=== PATIENT | female | born 1930 | race Caucasian/White ===

== ENCOUNTER 2019-01-25 13:58 | Emergency (ER) | payer MEDICARE ==
[~2019-01-25] VITALS: Ht 165.1 cm; Wt 48.0 kg
[2019-01-25 14:52] LABS: BASOPHILS # (AUTO) 0.02 x10^3/uL (0-0.1); BASOPHILS % (AUTO) 0 % (0-1); EOSINOPHILS # (AUTO) 0.08 x10^3/uL (0-0.4); EOSINOPHILS % (AUTO) 2 % (1-7); LYMPHOCYTES % (AUTO) 31 % (22-44); MD NO; MEAN CORPUSCULAR HEMOGLOBIN 33.3 pg (27.0-34.8); MEAN CORPUSCULAR VOLUME 100.7 fL (80-100); MEAN PLATELET VOLUME 7.7 fL (7.4-10.4); MONOCYTES # (AUTO) 0.55 x10^3/uL (0.2-0.8); MONOCYTES % (AUTO) 10 % (2-9); NEUTROPHILS % (AUTO) 57 % (42-75); PLATELET COUNT 247 x10^3/uL (130-400); RED BLOOD COUNT 4.32 x10^6/uL (3.82-5.3); RED CELL DISTRIBUTION WIDTH 13.9 % (9.6-15.2)
[2019-01-25 14:59] LABS: ALBUMIN 3.3 g/dL (3.4-5.0); ANION GAP 4 mmol/L (5-15); CALCIUM 7.9 mg/dL (8.5-10.1); CHLORIDE 113 mmol/L (98-107)
--- NOTE | 2019-01-25 15:02 | NUR ---
KATIA RN: TAMI RG UA COLLECTED AND SENT TO LAB
[2019-01-25 15:04] LABS: T4 (THYROXINE) 11.3 mcg/dL (4.8-13.9); TROPONIN I < 0.015 ng/mL (0.000-0.045)
[2019-01-25 15:10] LABS: THYROID STIMULATING HORMONE 0.487 mIU/L (0.358-3.740)
--- NOTE | 2019-01-25 15:10 | NUR ---
TALKED WITH DAUGHTER ON THE PHONE AND CONFIRMED PT BASELINE
[2019-01-25 15:17] LABS: MICROSCOPIC NOT IND
[2019-01-25 15:25] LABS: CULTURE INDICATED? NO
--- NOTE | 2019-01-25 16:51 | NUR ---
[facility] TO TRANSPORT PT BACK TO [facility] ([facility]) @ 1800 VIA PER PRIMARY RN.
--- NOTE | 2019-01-25 17:27 | NUR ---
PT GIVEN A MEAL WAITING ON [employer] [facility]
[2019-01-25 17:46] VITALS: BP 102/64
--- NOTE | 2019-01-25 17:49 | NUR ---
Vital signs charted at 1525 were charted accidentally on wrong pt. Vital signs undone.
== END 2019-01-25 18:18 | disposition home or self-care (01) ==
LOC: ED 18:07
DX: R53.1 Weakness (principal)
CPT/HCPCS: 36415; 71045; 80048; 81003; 82040; 83735; 84436; 84443; 84484; 85025; 93005; 99284